=== PATIENT | female | born 1995 | race Caucasian/White ===

== ENCOUNTER → 2024-07-07 13:47 | Outpatient (BNVA) | payer SELFPAY | PROVIDERS: Visit Provider Obstetrics & Gynecology | DX: Z34.91 Encounter for supervision of normal pregnancy, unspecified, first trimester (principal); Z3A.08 8 weeks gestation of pregnancy | CPT/HCPCS: 76801 ==

== ENCOUNTER 2025-02-10 20:24 | Inpatient (IN) | payer SELFPAY ==
[2025-02-10] VITALS (8 sets, daily range): BP systolic 100–118; BP diastolic 56–67; PULSE 52–77; RESP 16–17; TEMP 36.6–36.7; O2SAT 96–99; BMI 27.8
[2025-02-10 19:47] LABS: Basophils % 0.2 %; Eosinophils % 0.2 %; Hematocrit 38.3 % (36-47); Lymphocytes # 2.8 10^3/uL (0.8-4.8); Lymphocytes % 20.5 %; Mean Corpuscular HGB Conc 31.9 g/dL (30-55); Mean Corpuscular Hemoglobin 28.5 pg (27-33); Mean Corpuscular Volume 89.5 fl (85-98); Mean Platelet Volume 11.2 fL (7.4-10.4); Monocytes # 0.6 10^3/uL (0.2-0.9); Monocytes % 4.1 %; Neutrophils # 10.03 10^3/uL (1.8-7.7); Neutrophils % 74.3 %; Nucleated Red Blood Cells % 0 %; Platelet Count 236 10^3/cmm (157-399); Red Blood Count 4.28 10^6/uL (3.85-5.65); Red Cell Distribution Width 13.3 % (12.1-15.1)
--- NOTE | 2025-02-10 20:10 | PM.OPHPUD ---
Labor & Delivery H&P Update Date of Procedure: February 10, 2025 Date H&P Performed: 02/09/25 Changes to previous documentation: The cervix is dilated to 7 cm with spontaneous rupture of membranes Admission Diagnosis: 1. 29-year-old 4 para 3-0-0-3 at 39 weeks estimated gestational age presenting with spontaneous rupture of membranes and cervical change. 2. History of section Planned procedure: Other information: The patient is a female who has had an unremarkable . She had a previous section, but has had 2 successful vaginal delivery since that time. From the beginning she has made a clear she wants to have another . She has had consistent care. There were no concerns. Her blood type is O+. Her antibody screen was negative. Her glucose was 137 on her glucose screen. She is rubella nonimmune. She was positive for marijuana earlier in her . She is GBS negative. The remainder of her infectious disease profile is within normal limits. Related Problem List Diagnoses (1) History of section complicating : (2) 39 weeks gestation of : (3) Active labor at term: A&P Assessment and plan (1) History of section complicating : I anticipate . Anesthesia has been contacted. I, and anesthesia will be immediately available until delivery of the baby. Status: Acute (2) 39 weeks gestation of : Status: Acute (3) Active labor at term: Status: Acute PDMP PDMP Reviewed: Not Reviewed
--- NOTE | 2025-02-10 20:15 | P.PCNOB_ITS ---
Delivery Note: Date of delivery: February 10, 2025 Pre-delivery diagnoses: 1. 29-year-old 4 para 3-0-0-3 2. 39 weeks estimated gestational age 3. Spontaneous rupture of membranes and active labor 4. History of low-transverse s ection Post-delivery diagnoses: Status post Procedure: Delivering Physician: Oli Triplett Estimated blood loss (mL): 50 Pre-Delivery Course: The patient arrived to the hospital with spontaneous rupture membranes and noted to be 7 cm dilated and 80% effaced. She quickly progressed to a stretchy anterior lip. While pushing with 1 contraction the lip was reduced and she became complete. Delivery: DELIVERY: After becoming complete, the patient pushed through 1 more contraction. She delivered a female with a weight of 7 pounds 6 ounces with Apgars of 8, 10. The baby was delivered from the XENA position and placed on the mother's abdomen. The cord was then clamped and cut. There was a nuchal cord x 1 which the baby was delivered through without difficulty. There was no meconium. The placenta and 3 vessel cord were delivered intact shortly thereafter. The perineum and vaginal vault were carefully examined. No lacerations were noted. Both the mother and the baby were in stable condition. Post-Delivery Status: Good History History History 4 Term 3 0 Miscarriages/Ectopic 0 Living Children 3 A&P Assessment and plan (1) , delivered: I anticipate routine care. (2) 39 weeks gestation of : PDMP PDMP Reviewed: Not Reviewed Coding Level of Care Code Acute Code for Chg Fwd Diagnoses , delivered O34.219 39 weeks gestation of Z3A.39
[2025-02-11 04:00] VITALS: BP 120/78; PULSE 56; RESP 16; TEMP 36.7; O2SAT 98
[2025-02-11 05:14] LABS: Amphetamines Screen Urine Negative (Negative); Barbiturates Screen Urine Negative (Negative); Benzodiazepines Screen Urine Negative (Negative); Cocaine Screen Urine Negative (Negative); Opiate Screen Urine Negative (Negative); PCP Screen Urine Negative (Negative); THC Screen Urine Positive (Negative)
--- NOTE | 2025-02-11 08:03 | PM.OBGYDC ---
Discharge Providers [employer] Date of Admission: 02/10/25 20:24 Date of Discharge: 02/11/25 Attending Provider at Discharge: Oli Triplett MD Diagnoses at Discharge Discharge Diagnosis (1) , delivered: Status: Acute (2) 39 weeks gestation of : Status: Acute Reason for Visit Reason for Visit: AVERY ANTONY Hospital Course Hospital Course The patient presented to the hospital with spontaneous rupture of membranes and an active labor. When she arrived her cervix was 7 cm dilated. She quickly progressed to complete and had an unremarkable delivery of a healthy appearing female . Her course was also unremarkable. Her bleeding was within normal limits. Her pain was well-controlled. There was no concerns. Information Peripartum Data: Infant Delivery Method: Vaginal Physical Exam Narrative: The patient is alert. She appears comfortable. Her heart has a regular rate and rhythm with no murmurs appreciated. Lungs are clear to auscultation bilaterally. Her fundus is firm and below the umbilicus. History History History 4 Term 3 0 Miscarriages/Ectopic 0 Living Children 3 Discharge Data Studies Completed and Pending Pending at discharge Category Date Time Status Hemagram Timed Lab 02/11/25 08:19 Uncollected Laboratory Results WBC 13.50 10^3/uL (3.29-11.43) H 02/10/25 19:30 RBC 4.28 10^6/uL (3.85-5.65) 02/10/25 19:30 Hgb 12.20 g/dL (11.27-16.99) 02/10/25 19:30 Hct 38.3 % (36-47) 02/10/25 19:30 MCV 89.5 fl (85-98) 02/10/25 19:30 MCH 28.5 pg (27-33) 02/10/25 19:30 MCHC 31.9 g/dL (30-55) 02/10/25 19:30 RDW 13.3 % (12.1-15.1) 02/10/25 19:30 Plt Count 236 10^3/cmm (157-399) 02/10/25 19:30 MPV 11.2 fL (7.4-10.4) H 02/10/25 19:30 Neut % (Auto) 74.3 % 02/10/25 19:30 Lymph % (Auto) 20.5 % 02/10/25 19:30 [place] % (Auto) 4.1 % 02/10/25 19:30 Eos % (Auto) 0.2 % 02/10/25 19:30 Baso % (Auto) 0.2 % 02/10/25 19:30 Neut # (Auto) 10.03 10^3/uL (1.8-7.7) H 02/10/25 19:30 Lymph # (Auto) 2.8 10^3/uL (0.8-4.8) 02/10/25 19:30 [place] # (Auto) 0.6 10^3/uL (0.2-0.9) 02/10/25 19:30 Eos # (Auto) 0.0 10^3/uL (0.0-0.8) 02/10/25 19: Baso # (Auto) 0.0 10^3/uL (0.0-0.1) 02/10/25 19:30 Nucleated RBC % (auto) 0 % 02/10/25 19:30 Nucleated RBCs # 0.0 /100WBC 02/10/25 19:30 Urine Opiates Screen Negative ng/mL (Negative) 02/11/25 04:15 Ur Barbiturates Screen Negative ng/mL (Negative) 02/11/25 04:15 Ur Phencyclidine Scrn Negative ng/mL (Negative) 02/11/25 04:15 Ur Amphetamines Screen Negative ng/mL (Negative) 02/11/25 04:15 U Benzodiazepines Scrn Negative ng/mL (Negative) 02/11/25 04:15 Urine Cocaine Screen Negative ng/mL (Negative) 02/11/25 04:15 U Marijuana (THC) Screen Positive ng/mL (Negative) H 02/11/25 04:15 Blood Type O Positive 02/10/25 19:30 Rho(D) Type Rh positive 02/10/25 19:30 Antibody Screen Negative 02/10/25 19:30 Vitals Last Vital Signs Temp 98.1 F 02/11/25 04:00 Pulse 56 L 02/11/25 04:00 Resp 16 02/11/25 04:00 BP 120/78 02/11/25 04:00 Pulse Ox 98 02/11/25 04:00 O2 Del Method Room Air 02/11/25 04:00 Results Labs OB ([facility]): Blood Type O Positive 02/10/25 Antibody Screen Negative 02/10/25 Hct, (36-47) 38.3 % 02/10/25 Hgb, (11.27-16.99) 12.20 g/dL 02/10/25 Rho(D) Type Rh positive 02/10/25 Plt Count, (157-399) 236 10^3/cmm 02/10/25 Urine Opiates Screen, (Negative) Negative ng/mL Today Ur Barbiturates Screen, (Negative) Negative ng/mL Today Ur Phencyclidine Scrn, (Negative) Negative ng/mL Today Ur Amphetamines Screen, (Negative) Negative ng/mL Today U Benzodiazepines Scrn, (Negative) Negative ng/mL Today Urine Cocaine Screen, (Negative) Negative ng/mL Today U Marijuana (THC) Screen, (Negative) Positive ng/mL H Today Discharge Plan Discharge Patient Disposition: Home Condition: Stable Prescriptions: New ibuprofen 800 mg Tablet 800 mg PO TID Qty: 45 0RF Continued Gummies 400 mcg-35 mg- 25 mg-5 mg tablet,chewable 1 tab PO DAILY Discharge Orders: Discharge Order (Routine); Ordered 02/11/25 Ordered By: Oli Triplett Referrals: Oli Triplett MD [Physician, Family Practice] - 6 Weeks Discharge Diet: Usual diet Discharge Activity: Limit activity as instructed Patient Instructions: Depression (DC), Opioid Safety (DC), Preeclampsia and Eclampsia After Delivery (GEN), Hemorrhage (DC), OB Discharge Report, OB Food/Drug Interaction Guide, OB Care at Home, Opioid Safety, OB Vaginal Deliveries, Abnormal Bleeding Discharge Attestations [employer] Time Spent in Discharge Care*: less than 30 min Coding Level of Care Code Acute Code for Chg Fwd Diagnoses , delivered O34.219 39 weeks gestation of Z3A.39
[2025-02-11 09:50] VITALS: BP 115/63; PULSE 60; RESP 16; TEMP 36.7
[2025-02-11 10:19] LABS: Hematocrit 34.9 % (36-47); Mean Corpuscular HGB Conc 31.8 g/dL (30-55); Mean Corpuscular Hemoglobin 28.9 pg (27-33); Mean Corpuscular Volume 90.9 fl (85-98); Mean Platelet Volume 11.4 fL (7.4-10.4); Platelet Count 189 10^3/cmm (157-399); Red Blood Count 3.84 10^6/uL (3.85-5.65); Red Cell Distribution Width 13.4 % (12.1-15.1); White Blood Count 13.18 10^3/uL (3.29-11.43)
[2025-02-11] MEDS: ibuprofen 800 mg tablet PO ×2 (11:15→21:11)
[2025-02-11] MEDS: PRENATAL VIT NO.130/IRON/FOLIC 1 EACH TABLET PO (11:15)
[2025-02-11] MEDS: docusate sodium 100 mg Capsule PO (11:15)
[2025-02-11 21:10] VITALS: BP 111/74; PULSE 80; RESP 16; TEMP 36.8; O2SAT 97
[2025-02-11 21:17] VITALS: BP 111/74; PULSE 80; RESP 16; TEMP 36.8; O2SAT 97
== END 2025-02-11 21:17 | disposition home or self-care (01) | DRG 807 ==
LOC: OPOB 20:24 → OBGYN 20:24
PROVIDERS: Admitting Provider Family Medicine; Visit Provider Family Medicine
DX: O69.81X0 Labor and delivery complicated by cord around neck, without compression, not applicable or unspecified (principal); Z37.0 Single live birth; Z3A.39 39 weeks gestation of pregnancy; O34.211 Maternal care for low transverse scar from previous cesarean delivery; N85.8 Other specified noninflammatory disorders of uterus
CPT/HCPCS: 59409; 80306; 83986; 85025; 85027; 86850; 86900; J9999